=== PATIENT | male | born 1980 | race Caucasian/White ===

== ENCOUNTER 2019-12-03 07:20 | Emergency (ER) | payer SELFPAY ==
[2019-12-03 07:38] VITALS: BP 129/73
--- NOTE | 2019-12-03 07:56 | UC ---
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 - History of Current Complaint Chief Complaint: UCUpperExtremity Stated Complaint: S/P FALL RIGHT ELBOW PAIN Time Seen by Provider: 12/03/19 07:46 Hx Obtained From: Patient Mechanism of Injury: fall onto right elbow Onset/Duration: Days Severity Initially: Severe Severity Currently: Mild Pain Intensity: 4 - 10 with movement Pain Scale Used: 0-10 Numeric Location Of Pain: Is Diffuse Character: Sharp Aggravating Factor(s): Movement Alleviating Factor(s): Rest Associated Signs And Symptoms: Positive: Swelling, Bruising Body - Head: 1 - pain/unable to fully extend or supinate - Allergies/Home Medications Allergies/Adverse Reactions: Allergies Allergy/AdvReac Type Severity Reaction Status Date / Time No Known Allergies Allergy Verified 12/03/19 07:30 Home Medications: Home Medications NK [No Home Medications Reported] 05/17/19 [History Confirmed 12/03/19] PMH/Surg Hx/FS Hx/Imm Hx Previously Healthy: Yes - Surgical History Surgical History: Yes Surgery Procedure, Year, and Place: right ankle - 2013 - Family History Known Family History: Positive: Hypertension - Social History Alcohol Use: Occasionally Substance Use Type: Marijuana Substance Use Comment - Amount & Last Used: occasional use Smoking Status (MU): Heavy Every Day Tobacco Smoker Type: Cigarettes Amount Used/How Often: 1 ppd Length of Time of Smoking/Using Tobacco: 20 years - Immunization History Most Recent Tetanus Shot: 2013 Review of Systems All Other Systems Reviewed And Are Negative: Yes Constitutional: Positive: Negative Skin: Positive: Negative Eyes: Positive: Negative ENT: Positive: Negative Respiratory: Positive: Negative Cardiovascular: Positive: Negative Gastrointestinal: Positive: Negative Genitourinary: Positive: Negative Motor: Positive: Negative Neurovascular: Positive: Negative Musculoskeletal: Positive: Arthralgia - right elbow, Decreased ROM Neurological/Mental Status: Positive: Negative Psychological: Positive: Negative Physical Exam Triage Information Reviewed: Yes Appearance: Well-Appearing, No Pain Distress, Well-Nourished Vital Signs: Initial Vital Signs Temp 98.1 F 12/03/19 07:30 Pulse 77 12/03/19 07:30 Resp 15 12/03/19 07:30 BP 129/73 12/03/19 07:30 Pulse Ox 100 12/03/19 07:30 Vital Signs Reviewed: Yes Eyes: Positive: Conjunctiva Clear ENT: Positive: Hearing grossly normal. Negative: Nasal congestion, Nasal drainage, Tonsillar swelling, Tonsillar exudate, Sinus tenderness, Uvula midline Dental Exam: Normal Neck: Positive: Supple, Nontender, No Lymphadenopathy Respiratory: Positive: Lungs clear, Normal breath sounds, No respiratory distress, No accessory muscle use Cardiovascular: Positive: RRR, No Murmur Musculoskeletal: Positive: ROM Limited @ - right elbow, Other: - right shoulder and wrist normal, nvi distal to injury Neurological: Positive: Alert Psychological Exam: Normal Skin Exam: Normal Diagnostics - Radiology No standard instances Radiology Interpretation Completed By: Radiologist Summary of Radiographic Findings: OSTEOARTHRITIS. WHILE THERE IS NO DISPLACED FRACTURE, THERE IS A JOINT EFFUSION. THE PRESENCE OF A JOINT EFFUSION GIVEN THE HISTORY OF TRAUMA IS CONCERNING FOR RADIOGRAPHICALLY OCCULT FRACTURE. Elbow Pain Course/Dx - Differential Dx/Diagnosis Provider Diagnosis: Effusion of right elbow, Injury of right elbow Discharge ED - Sign-Out/Discharge Documenting (check all that apply): Patient Departure All imaging exams completed and their final reports reviewed: Yes - Discharge Plan Condition: Stable Disposition: HOME Patient Education Materials: Elbow Fracture (ED) Referrals: Bernice Ceja MD [Medical Doctor] - 5 Days (ask for a Gage appt) Additional Instructions: sling ice twice daily aleve 1-2 twice daily XR report: OSTEOARTHRITIS. WHILE THERE IS NO DISPLACED FRACTURE, THERE IS A JOINT EFFUSION. THE PRESENCE OF A JOINT EFFUSION GIVEN THE HISTORY OF TRAUMA IS CONCERNING FOR RADIOGRAPHICALLY OCCULT FRACTURE. I suspect you have a radial head fracture that is not apparent on XR - Billing Disposition and Condition Condition: STABLE Disposition: Home
== END 2019-12-03 08:42 | disposition home or self-care (01) ==
LOC: UCCORT 07:20
DX: S50.01XA Contusion of right elbow, initial encounter (principal); M25.421 Effusion, right elbow; M19.021 Primary osteoarthritis, right elbow; F17.210 Nicotine dependence, cigarettes, uncomplicated; W01.0XXA Fall on same level from slipping, tripping and stumbling without subsequent striking against object, initial encounter; Y92.9 Unspecified place or not applicable
CPT/HCPCS: 99212; G0463